=== PATIENT | male | born 1950 | race Caucasian/White ===

== ENCOUNTER 2019-01-15 02:09 | Emergency (ER) | payer MEDICARE, OTHER ==
[~2019-01-15] VITALS: Ht 180.3 cm; Wt 112.9 kg
[2019-01-15 02:12] VITALS: BP 154/78
--- NOTE | 2019-01-15 02:14 | NUR ---
PT BIBS. C/O "WALKING TO RESTROOM. FELL. HIT EYE. -KO" AOX4 AMBULATORY VSS -SOB -DIZZ -N/V
== END 2019-01-15 04:51 | disposition home or self-care (01) ==
LOC: ER 02:15
DX: S01.111A Laceration without foreign body of right eyelid and periocular area, initial encounter (principal); S09.8XXA Other specified injuries of head, initial encounter; Z60.2 Problems related to living alone; W01.198A Fall on same level from slipping, tripping and stumbling with subsequent striking against other object, initial encounter; Y93.89 Activity, other specified; Y92.002 Bathroom of unspecified non-institutional (private) residence as the place of occurrence of the external cause; Y99.8 Other external cause status
CPT/HCPCS: 12011; 70450; 70486; 99284; A6402 ×2; A6403 ×2